=== PATIENT | female | born 2000 | race Two or more races ===

== ENCOUNTER 2022-01-10 14:56 | Emergency (ER) | payer MEDICAID, OTHER ==
[~2022-01-10] VITALS: Ht 154.9 cm; Wt 57.2 kg
[2022-01-10 15:15] VITALS: BP 126/80
--- NOTE | 2022-01-10 15:16 | NUR ---
THE PATIENT IS PRESENTED TO ER FOR RASH TO BILAT LOWER THIGH AND RFA X 5 DAYS COMING BACK FROM A TRIP. WILL CONTINUE TO MONITOR THE PATIENT.
[2022-01-10] MEDS ORDERED: DESO60CR12 TP (15:25)
--- NOTE | 2022-01-10 15:34 | NUR ---
Patient discharged to home in stable condition. Written and verbal after care instructions given. Patient verbalizes understanding of instruction.
== END 2022-01-10 15:35 | disposition home or self-care (01) ==
LOC: ER 15:07
DX: R21 Rash and other nonspecific skin eruption (principal)